=== PATIENT | male | born 1980 | race Caucasian/White ===

== ENCOUNTER 2021-02-21 11:43 | Day surgery (SDC) | payer OTHER ==
[~2021-02-21] VITALS: Ht 172.7 cm; Wt 84.3 kg
[~2021-02-21 11:43] MED LIST: ALEV220T22 PO; CETI-36 PO; EFFE75CA2 PO; NS 1,000 ML IV ONE
--- OUTSIDE RECORDS SUMMARY | 2021-02-21 11:47 | CCD | Continuity of Care Document ---
Author Author Armando TORREZ M.D. Organization Unknown Address [address] [place] [id number] Phone [phone] Care Team Providers Care Wire Mesh Gate Assembler Name Role Phone Dago Olivo AUTM [phone] Problems Active Problems Provider Date Dysphagia Brendon Torrez M.D. Onset: 02/14/20 21 Social History Type Date Description Comments Sex Unknown ETOH Use Occasionally Tobacco Use Start: Unknown Patient has never smoked Allergies and adverse reactions Description No Known Drug Allergies Medications Active Medications SIG Qnty Indications Ordering Provide r Date Omeprazole 40mg Capsules DR 1 cap by mouth every morning 90caps Brendon Torrez M.D. 021 Zyrtec Allergy 10mg Tablets 1 by mouth every day Unknown Aleve 220mg Tablets 1 by mouth twice a day w/ food as needed Unknown Effexor XR 150mg Caps ER 24HR Unknown Immunizations Description No Information Available Vital Signs Date Vital Result Comment 02/13/2021 2:39pm Height 68 inches 5'8" Weight 183.00 lb BP Systolic 109 mmHg BP Diastolic 62 mmHg Heart Rate 64 /min BMI (Body Mass Index) 27.8 kg/m2 Weight 83.009 kg Body Temperature 97.6 F Results Description No Information Available Procedures Date Code Description Status 02/13/2021 49059 Office/Outpatient New Low MDM 30 -44 Minutes Completed Medical Devices Description No Information Available Encounters Type Date Location Provider Dx Diagnosis Office Visit 02/13/2021 2:00p Main Office Brendon Torrez M.D. R 13.10 Dysphagia, unspecified Assessments Date Code Description Provider 02/13/2021 R13.10 Dysphagia Brendon johnson M.D. Plan of Treatment Future Appointment(s):* 02/19/2021 7:00 am - Theresa at Main Office * 02/21/2021 2:30 pm - Brendon Torrez M.D. at Main Office 02/13/2021 - Brendon Torrez M.D.* R13.10 Dysphagia* Comments:* 40 yo ADS who presents for an EGD due to a h/o dysphagia since 09/28. No c/o abdominal pain, weight loss, change in bowel habits, or rectal bleeding. No family h/o colon cancer. No h/o chest pain, or sob. Plan:1. Egd + Bd2. Informed cons ent.3. Omeprazole 40 mgs po qam. Functional Status Description No Information Available Mental Status Description No Information Available Referrals Refer to Reason for Referral Status Appt Date Brendon Torrez M.D. Created [address] [place] [address] [phone]
--- OUTSIDE RECORDS SUMMARY | 2021-02-21 11:47 | CCD ---
Author Author [facility] Organization [facility] Address Unknown Phone Unavailable Care Team Providers Care House Officer Name Role Phone Maycol Torrez MD Unavailable Unavailable Maycol Torrez MD Unavailable Unavailable Maycol Torrez MD Unavailable Unavailable Maycol Torrez MD Unavailable Unavailable Maycol Torrez MD Unavailable Unavailable Maycol Torrez MD Unavailable Unavailable Maycol Torrez MD Unavailable Unavailable Maycol Torrez MD Unavailable Unavailable Maycol Torrez MD Unavailable Unavailable Maycol Torrez MD Unavailable Unavailable Maycol Torrez MD Unavailable Unavailable Maycol Torrez MD Unavailable Unavailable Maycol Torrez MD Unavailable Unavailable Maycol Torrez MD Unavailable Unavailable Maycol Torrez MD Unavailable Unavailable Maycol Torrez MD Unavailable Unavailable Maycol Torrez MD Unavailable Unavailable Maycol Torrez MD Unavailable Unavailable Maycol Torrez MD Unavailable Unavailable Maycol Torrez MD Unavailable Unavailable Maycol Torrez MD Unavailable Unavailable Maycol Torrez MD Unavailable Unavailable Maycol Torrez MD Unavailable Unavailable Maycol Torrez MD Unavailable Unavailable Maycol Torrez MD Unavailable Unavailable Maycol Torrez MD Unavailable Unavailable Macyol Torrez MD Unavailable Unavailable Maycol Torrez MD Unavailable Unavailable Maycol Torrez MD Unavailable Unavailable Lore, S Berndon MD Unavailable Unavailable Lore, S Brendon MD Unavailable Unavailable Lore, S Brendon MD Unavailable Unavailable Lore, S Brendon MD Unavailable Unavailable Lore, S Brendon MD Unavailable Unavailable Lore, S Brendon MD Unavailable Unavailable Lore, S Brendon MD Unavailable Unavailable Lore, S Brendon MD Unavailable Unavailable Lore, S Brendon MD Unavailable Unavailable Lore, S Brendon MD Unavailable Unavailable Lore, S Brendon MD Unavailable Unavailable Lore, S Brendon MD Unavailable Unavailable Lore, S Brendon MD Unavailable Unavailable Lore, S Brendon MD Unavailable Unavailable Lore, S Brendon MD Unavailable Unavailable Lore, S Brendon MD Unavailable Unavailable Lore, S Rbendon MD Unavailable Unavailable Lore, S Brendon MD Unavailable Unavailable Lore, S Brendon MD Unavailable Unavailable Lore, S Brendon MD Unavailable Unavailable Lore, S Brendon MD Unavailable Unavailable [facility] Unavailable Unavailable NOT, SPECIFIED Unavailable Unavailable Re-disclosure Warning The records that you are about to access may contain information from federally-assisted alcohol or drug abuse programs. If such information is present, then the following federally mandated warning applies: This information has been disclosed to you from records protected by federal confidentiality rules (42 CFR part 2). The federal rules prohibit you from making any further disclosure of this information unless further disclosure is expressly permitted by the written consent of the person to whom it pertains or as otherwise permitted by 42 CFR part 2. A general authorization for the release of medical or other information is NOT sufficient for this purpose. The Federal rules restrict any use of the information to criminally investigate or prosecute any alcohol or drug abuse patient.The records that you are about to access may contain highly sensitive health information, the redisclosure of which is protected by Article 27-F of the [facility] Public Health law. If you continue you may have access to information: Regarding HIV / AIDS; Provided by facilities licensed or operated by the [facility] Office of Mental Health; or Provided by the [facility] Office for People With Developmental Disabilities. If such information is present, then the following [facility] mandated warning applies: This information has been disclosed to you from confidential records which are protected by state law. State law prohibits you from making any further disclosure of this information without the specific written consent of the person to whom it pertains, or as otherwise permitted by law. Any unauthorized further disclosure in violation of state law may result in a fine or care home sentence or both. A general authorization for the release of medical or other information is NOT sufficient authorization for further disc losure. Encounters Encounter Providers Location Date Indications Data Source(s ) Outpatient Attender: Brendon Torrez MD Main Office 02/13/2021 02:00:00 PM EDT [facility] ([facility]) Outpatient Attender: RAKESH JESUSJILLonsultant: SPECIFIED NOT 12/07/2020 04:08:41 PM EDT - 12/08/2020 05:29:[address] [facility] Patient discharged. Medications Medication Brand Name Start Date Product Form Dose Route Admi nistrative Instructions Pharmacy Instructions Status Indications Reaction Description Data Source(s) Omeprazole 40 MG Delayed Release Oral Capsule Omeprazole 02/13/2021 12:00:00 AM EDT ORAL active [facility] ([facility]) Insurance Providers Payer name Policy type / Coverage type Policy ID Covered democrat ID Covered democrat's relationship to matute Policy Matute Plan Information [facility] ACTIVE DUTY [id number] SP [id number] [facility] [employer] [id number] SP [id number] [facility] HUMANA - O/P [id number] 18 [id number] [facility] CLAIMS ISABELLA -O/P [id number] 18 [id number] Problems, Conditions, and Diagnoses Code Display Name Description Problem Type Effective Dates Data Source(s) R0683 Snoring Snoring Diagnosis 12/07/2020 08:00:[address] [facility] G4733 Obstructive sleep apnea (adult) (pediatr ic) Obstructive sleep apnea (adult) (pediatric) Diagnosis 12/07/2020 08:00:[address] [facility] [id number] Dysphagia Dysphagia Problem 02/13/2021 12:00:00 AM ED T [facility] ([facility]) Surgeries/Procedures Procedure Description Date Indications Data Source(s) OFFICE OUTPATIENT NEW 30 MINUTES 02/13/2021 12:00:00 A M EDT [facility] ([facility]) Results ID Date Data Source [id number] 02/16/2021 10:39:00 AM EDT [facility] Name Value Range Interpretation Code Description Data Angely rce(s) Supporting Document(s) SARS coronavirus 2 RNA Not Detected [facility] This lab was ordered by [facility] and reported by [facility]. ID Date Data Source [id number] 02/16/2021 12:00:00 AM EDT [facility] Name Value Range Interpretation Code Description Data Angely rce(s) Supporting Document(s) SARS-COV-2 Negative [facility] This lab was ordered by [facility] and re ported by [employer]. ID Date Data Source [id number] 02/15/2021 12:00:00 AM EDT [facility] Name Value Range Interpretation Code Description Data Angely rce(s) Supporting Document(s) SARS-COV-2 Negative [facility] This lab was ordered by [facility] and re ported by [employer]. ID Date Data Source [id number] 02/12/2021 12:00:00 AM EDT [facility] Name Value Range Interpretation Code Description Data Angely rce(s) Supporting Document(s) SARS-COV-2 Negative [facility] This lab was ordered by [facility] and re ported by [employer]. ID Date Data Source [id number] 02/09/2021 12:00:00 AM EDT [facility] Name Value Range Interpretation Code Description Data Angely rce(s) Supporting Document(s) SARS-COV 2 PCR NEGATIVE [facility] This lab was ordered by [facility] and reported by [employer]. ID Date Data Source [id number] 02/09/2021 12:00:00 AM EDT [facility] Name Value Range Interpretation Code Description Data Angely rce(s) Supporting Document(s) SARS-CoV-2 (COVID-19) RNA [Presence] in Respiratory specimen by SHELIA with probe detection Not detected [facility] This lab was ordered by [email or web address] and r eported by [email or web address]. ID Date Data Source [id number] 02/06/2021 12:00:00 AM EDT [facility] Name Value Range Interpretation Code Description Data Angely rce(s) Supporting Document(s) SARS-COV-2 Negative [facility] This lab was ordered by [facility] and re ported by [employer]. ID Date Data Source [id number] 02/01/2021 12:00:00 AM EDT [facility] Name Value Range Interpretation Code Description Data Angely rce(s) Supporting Document(s) SARS-COV-2 Negative [facility] This lab was ordered by [facility] and re ported by [facility]. ID Date Data Source [id number] 01/30/2021 11:45:00 AM EDT [facility] Name Value Range Interpretation Code Description Data Angely rce(s) Supporting Document(s) SARS-COV 2 PCR NEGATIVE [facility] This lab was ordered by [facility] and reported by [employer]. ID Date Data Source [id number] 01/30/2021 12:00:00 AM EDT [facility] Name Value Range Interpretation Code Description Data Angely rce(s) Supporting Document(s) SARS-CoV-2 (COVID-19) RNA [Presence] in Respiratory specimen by SHELIA with probe detection Not detected [facility] This lab was ordered by [employer] and r eported by [email or web address]. ID Date Data Source [id number] 01/24/2021 12:00:00 AM EDT [facility] Name Value Range Interpretation Code Description Data Angely rce(s) Supporting Document(s) SARS-COV-2 Negative [facility] This lab was ordered by [facility] and re ported by [facility]. ID Date Data Source [id number] 01/17/2021 01:55:00 PM EDT [facility] Name Value Range Interpretation Code Description Data Angely rce(s) Supporting Document(s) SARS coronavirus 2 RNA [Presence] in Res piratory specimen by SHELIA with probe detection Not Detected [facility] This lab was ordered by Delia and re ported by [facility]. ID Date Data Source [id number] 01/17/2021 09:55:00 AM EDT [facility] Name Value Range Interpretation Code Description Data Angely rce(s) Supporting Document(s) SARS-CoV-2 NEGATIVE [facility] This lab was ordered by [facility] and reported by [employer]. ID Date Data Source [id number] 01/17/2021 12:00:00 AM EDT [facility] Name Value Range Interpretation Code Description Data Angely rce(s) Supporting Document(s) SARS-CoV-2 (COVID-19) RNA [Presence] in Respiratory specimen by SHELIA with probe detection Not detected [facility] This lab was ordered by [employer] and r eported by [employer]. ID Date Data Source [id number] 01/17/2021 12:00:00 AM EDT [facility] Name Value Range Interpretation Code Description Data Angely rce(s) Supporting Document(s) SARS-COV 2 PCR NEGATIVE [facility] This lab was ordered by [facility] and reported by [employer]. ID Date Data Source [id number] 01/09/2021 02:15:00 PM EDT [facility] Name Value Range Interpretation Code Description Data Angely rce(s) Supporting Document(s) SARS coronavirus 2 RNA [Presence] in Res piratory specimen by SHELIA with probe detection anterior nasal swabs [facility] This lab was ordered by [facility] and re ported by [employer]. ID Date Data Source [id number] 01/09/2021 10:15:00 AM EDT [facility] Name Value Range Interpretation Code Description Data Angely rce(s) Supporting Document(s) SARS-CoV-2 NEGATIVE [facility] This lab was ordered by [facility] and reported by [employer]. ID Date Data Source [id number] 01/09/2021 12:00:00 AM EDT [facility] Name Value Range Interpretation Code Description Data Angely rce(s) Supporting Document(s) SARS-COV 2 PCR NEGATIVE [facility] This lab was ordered by [facility] and reported by [employer]. ID Date Data Source [id number] 01/09/2021 12:00:00 AM EDT [facility] Name Value Range Interpretation Code Description Data Angely rce(s) Supporting Document(s) SARS-CoV-2 (COVID-19) RNA [Presence] in Respiratory specimen by SHELIA with probe detection Not detected [facility] This lab was ordered by [employer] and r eported by [email or web address]. ID Date Data Source [id number] 01/03/2021 02:00:00 PM EDT [facility] Name Value Range Interpretation Code Description Data Angely rce(s) Supporting Document(s) SARS coronavirus 2 RNA [Presence] in Res piratory specimen by SHELIA with probe detection anterior nasal swabs [facility] This lab was ordered by [facility] and re ported by [employer]. ID Date Data Source [id number] 01/03/2021 10:00:00 AM EDT [facility] Name Value Range Interpretation Code Description Data Angely rce(s) Supporting Document(s) SARS-CoV-2 NEGATIVE [facility] This lab was ordered by [facility] and reported by [employer]. ID Date Data Source [id number] 12/20/2020 09:15:00 AM EDT [facility] Name Value Range Interpretation Code Description Data Angely rce(s) Supporting Document(s) SARS-COV 2 PCR NEGATIVE [facility] This lab was ordered by [facility] and reported by [employer]. ID Date Data Source [id number] 12/20/2020 12:00:00 AM EDT [facility] Name Value Range Interpretation Code Description Data Angely rce(s) Supporting Document(s) SARS-CoV-2 (COVID-19) RNA [Presence] in Respiratory specimen by SHELIA with probe detection Not detected [facility] This lab was ordered by [email or web address] and r eported by [email or web address]. ID Date Data Source [id number] 12/13/2020 01:19:00 PM EDT [facility] Name Value Range Interpretation Code Description Data Angely rce(s) Supporting Document(s) SARS coronavirus 2 RNA [Presence] in Res piratory specimen by SHELIA with probe detection [facility] This lab was ordered by [facility] [employer] and re ported by [employer]. ID Date Data Source [id number] 12/13/2020 09:19:00 AM EDT [facility] Name Value Range Interpretation Code Description Data Angely rce(s) Supporting Document(s) SARS-CoV-2 NEGATIVE [facility] This lab was ordered by [facility] and reported by [employer]. ID Date Data Source [id number] 12/04/2020 09:36:00 AM EDT [facility] Name Value Range Interpretation Code Description Data Angely rce(s) Supporting Document(s) SARS coronavirus 2 RNA Not Detected [facility] This lab was ordered by [facility] and reported by [facility]. ID Date Data Source [id number] 11/16/2020 12:00:00 AM EDT [facility] Name Value Range Interpretation Code Description Data Angely rce(s) Supporting Document(s) SARS-CoV-2 SHELIA Not Detected [facility] This lab was ordered by [employer] and re ported by [employer]. ID Date Data Source [id number] 11/07/2020 01:00:00 PM EDT [facility] Name Value Range Interpretation Code Description Data Angely rce(s) Supporting Document(s) SARS-CoV-2 NEGATIVE [facility] This lab was ordered by [facility] and reported by [employer]. ID Date Data Source [id number] 11/07/2020 12:00:00 AM EDT [facility] Name Value Range Interpretation Code Description Data Angely rce(s) Supporting Document(s) SARS-CoV-2 RT-PCR negative [facility] This lab was ordered by [facility] and re ported by [employer]. ID Date Data Source [id number] 10/18/2020 09:27:00 AM EDT [facility] Name Value Range Interpretation Code Description Data Angely rce(s) Supporting Document(s) SARS-CoV-2 NEGATIVE [facility] This lab was ordered by [facility] and reported by [employer]. ID Date Data Source [id number] 10/18/2020 12:00:00 AM EDT [facility] Name Value Range Interpretation Code Description Data Angely rce(s) Supporting Document(s) SARS-CoV-2 RT-PCR negative [facility] This lab was ordered by [facility] and re ported by [employer]. Procedure Social History No Information Vital Signs ID Date Data Source UNK Name Value Range Interpretation Code Description Data Source(s) Body height 68 [in_i] 68 [in_i] [facility] ([facility]) 5'8" Body weight 183.00 [lb_av] 183.00 [lb_av] [facility] T ([facility]) Systolic blood pressure 109 mm[Hg] 109 mm[Hg] M [facility] ([facility]) Diastolic blood pressure 62 mm[Hg] 62 mm[Hg] [facility] ([facility]) Heart rate 64 /min 64 /min [facility]) Body mass index (BMI) [Ratio] 27.8 kg/m2 27.8 k g/m2 [facility] ([facility]) Body weight 83.009 kg 83.009 kg [facility] Body temperature 97.6 [degF] 97.6 [degF] [facility] ([facility])
--- OUTSIDE RECORDS SUMMARY | 2021-02-21 11:47 | CCD | Continuity of Care Document ---
Author Author Occupational Health Specialist[facility] Organization Unknown Address Unknown Phone Unavailable Care Team Providers Care Carbon Accountant Name Role Phone Bari Holbrook Unavailable Unavailable Problems No Problem Information Available Allergies and Adverse Reactions No Allergy Information Available Medications No Medication Information Available Social History No Social History Information Available Tobacco smoking consumption unknown Male Results No Known Results No Result Information Available Vital Signs No Vital Observation Information Available Advance Directives HIPAA - Patient specified Unknown. Payers [facility] Number: [address] [facility] [address] tel: Armando Fuentes [id number] [place] [id number] tel:
[2021-02-21] MEDS ORDERED: propofoL 200 MG/20 ML VIAL As Ordered ONE (12:45)
[2021-02-21] MEDS ORDERED: LIDOCAINE 2% 100MG/5ML SDV (FOR ANES.) As Ordered ONE (12:45)
[2021-02-21] MEDS ORDERED: fentaNYL 100 MCG/2 ML INJECTION (J3010) As Ordered ONE (12:53)
--- NOTE | 2021-02-21 14:17 | ROOR ---
Patient Name: Armando Fuentes Procedure Date: 02/21/2021 1:57 PM Date of : 1980 Age: 40 Room: [facility] Gender: Male Note Status: Finalized Procedure: Upper Endoscopy + Biopsies + Balloon Dilatation Indications: Dysphagia, Chest pain (non cardiac) Providers: Brendon Torrez MD Referring MD: GILBERTO JOSEPH MD Requesting Provider: Medicines: Monitored Anesthesia Care Complications: No immediate complications. Procedure: Pre-Anesthesia Assessment: - The heart rate, respiratory rate, oxygen saturations, blood pressure, adequacy of pulmonary ventilation, and response to care were monitored throughout the procedure. The Endoscope was introduced through the mouth, and advanced to the second part of duodenum. The upper GI endoscopy was accomplished without difficulty. The patient tolerated the procedure well. Findings: The Z-line was regular and was found 40 cm from the incisors. Mucosal changes including feline appearance were found in the lower third of the esophagus. Biopsies were obtained from the proximal and distal esophagus with cold forceps for histology of suspected eosinophilic esophagitis. No other significant abnormalities were identified in a careful examination of the stomach. The exam of the duodenum was otherwise normal. Impression: - Z-line regular, 40 cm from the incisors. - Esophageal mucosal changes suggestive of eosinophilic esophagitis. Biopsied. - The examination was otherwise normal. Recommendation: - Patient has a contact number available for emergencies. The signs and symptoms of potential delayed complications were discussed with the patient. Return to normal activities tomorrow. Written discharge instructions were provided to the patient. - Resume previous diet. - Discharge patient to home. - Follow an antireflux regimen. - Use Prilosec (omeprazole) 40 mg PO BID. - Await pathology results. - Telephone GI clinic for pathology results in 1 week. - The findings and recommendations were discussed with the patient. Procedure Code(s): --- Professional --- 15191, Esophagogastroduodenoscopy, flexible, transoral; with biopsy, single or multiple Diagnosis Code(s): --- Professional --- K22.8, Other specified diseases of esophagus R13.10, Dysphagia, unspecified R07.89, Other chest pain CPT copyright 2019 [employer]. All rights reserved. The codes documented in this report are preliminary and upon motor equipment sergeant review may be revised to meet current compliance requirements. Brendon Torrez MD Brendon Torrez MD 02/21/2021 2:17:11 PM Electronically signed by Brendon Torrez MD Number of Addenda: 0 Note Initiated On: 02/21/2021 1:57 PM Estimated Blood Loss: Estimated blood loss: none.
[2021-02-21 14:40] VITALS: BP 150/91
== END 2021-02-21 14:50 | disposition home or self-care (01) ==
LOC: M OPP 11:43
PROVIDERS: ATTEND Internal Medicine Gastroenterology
DX: K22.89 Other specified disease of esophagus (principal); R13.10 Dysphagia, unspecified; R07.89 Other chest pain; Z79.899 Other long term (current) drug therapy; Z87.891 Personal history of nicotine dependence
CPT/HCPCS: 43239; 88305; J3010